=== PATIENT | female | born 1990 | race American Indian/Alaskan Native ===

== ENCOUNTER 2019-01-14 12:05 | Emergency (ER) | payer MEDICAID ==
--- NOTE | 2019-01-14 12:26 | Event Note ---
ED Screening Note Date of service: 01/14/19 Time: 12:26 ED Screening Note: Pt c/o RUQ abdominal pain with h/o gallstones. pain is10/10 and piercing through back. reports vomitting this morning. denies fever or chills. Denies urinary symptoms. Denies vaginal bleeding. ABD: soft, TTP RUQ. No rigidity. NL BS Back: NTTP paraspinal and vertebrae. A: RUQ abdominal pain This initial assessment/diagnostic orders/clinical plan/treatment(s) is/are subject to change based on patients health status, clinical progression and re- assessment by fellow clinical providers in the ED. Further treatment and workup at subsequent clinical providers discretion. Patient/guardian urged not to elope from the ED as their condition may be serious if not clinically assessed and managed. Initial orders include: RUQ abdominal ultrasounf, labs
[2019-01-14 12:29] VITALS: BP 134/69
[2019-01-14 13:16] LABS: Bilirubin,Urine NEG (Negative); Blood,Urine NEG (Negative); Color,Urine Yellow (Yellow); Protein,Urine <15 mg/dL mg/dL (Negative); Urobilinogen,Urine < 2.0 mg/dL (<2.0); WBC,Urine < 1.0 /HPF (0.0-6.0)
--- NOTE | 2019-01-14 13:18 | Ultrasound Report ---
LIMITED RUQ ABDOMINAL ULTRASOUND INDICATION: RUQ pain. H/O gallstones. COMPARISON: No relevant prior imaging study available. FINDINGS: Pancreas: Visualized portions show no significant abnormality. Abdominal Aorta: No significant abnormality. IVC: No significant abnormality. Liver: The liver measures 20 cm in length. No significant abnormality. Normal hepatopedal blood flow in the main portal vein. Gallbladder: Mobile gallstones measuring up to nearly 2 cm in maximal dimension with no gallbladder w all thickening or pericholecystic fluid.. Bile ducts: No significant abnormality. Common bile duct measures 4 mm. Right kidney: No significant abnormality visualized.. Free fluid: None. Additional Findings: None. IMPRESSION: 1. Cholelithiasis with no evidence of cholecystitis. 2. Hepatomegaly. Signer Name: Tai Villarreal MD Signed: 01/14/2019 1:13 PM Workstation Name: [id number]
[2019-01-14 13:42] LABS: Basophils # (Auto) 0.1 K/mm3 (0.0-0.1); Basophils % (Auto) 0.7 % (0.0-1.8); Eosinophils # (Auto) 0.1 K/mm3 (0.0-0.4); Eosinophils % (Auto) 0.5 % (0.0-4.3); Hematocrit 36.2 % (30.3-42.9); Hemoglobin 11.9 gm/dl (10.1-14.3); Lymphocytes % (Auto) 16.1 % (13.4-35.0); Mean Corpuscular HGB Conc 33 % (30-34); Mean Corpuscular Volume 77 fl (79-97); Monocytes # (Auto) 0.7 K/mm3 (0.0-0.8); Monocytes % (Auto) 5.2 % (0.0-7.3); Platelet Count 404 K/mm3 (140-440); Red Blood Count 4.72 M/mm3 (3.65-5.03)
[2019-01-14] MEDS ORDERED: ONDANSETRON 4 MG ODT TAB PO ONE (13:43)
[2019-01-14] MEDS ORDERED: KETOROLAC 30 MG/1 ML INJ IM ONE (13:43)
--- NOTE | 2019-01-14 13:45 | Emergency Department Report ---
ED Abdominal Pain HPI - General Chief Complaint: Abdominal Pain Stated Complaint: V/N/ABD PAIN Time Seen by Provider: 01/14/19 12:25 Source: patient Mode of arrival: Ambulatory Limitations: No Limitations - History of Present Illness Initial Comments: 20-year-old female presents to ED with right upper quadrant abdominal pain, nausea and vomiting since last night. Patient states she had an incidental finding of gallstones when she had her ultrasound when she was with her child. However, she states had the gallstones have never caused any abdominal pain. Patient reports right upper quadrant pain with radiation to the back, with associated nausea and vomiting. She denies any fever or chills. MD Complaint: abdominal pain -: Last night Location: RUQ Radiation: back Migration to: no migration Severity: moderate Quality: cramping Consistency: constant Improves With: nothing Worsens With: nothing Associated Symptoms: nausea, vomiting. denies: diarrhea, fever - Related Data Previous Rx's Medication Instructions Recorded Last Taken Type Dicyclomine [Bentyl] 20 mg PO QID PRN #20 tablet 01/14/19 Unknown Rx Naproxen [Naprosyn] 500 mg PO BID #20 tablet 01/14/19 Unknown Rx Ondansetron [Zofran Odt] 4 mg PO Q8HR PRN #20 tab.rapdis 01/14/19 Unknown Rx traMADoL [Ultram] 50 mg PO Q6HR PRN #7 tablet 01/14/19 Unknown Rx Allergies Allergy/AdvReac Type Severity Reaction Status Date / Time No Known Allergies Allergy Unverified 01/14/19 12:08 ED Review of Systems ROS: Stated complaint: V/N/ABD PAIN Other details as noted in HPI Comment: All other systems reviewed and negative Constitutional: denies: chills, fever Gastrointestinal: abdominal pain, nausea, vomiting ED Past Medical Hx - Past Medical History Previous Medical History?: Yes Hx Psychiatric Treatment: Yes ([employer]) - Surgical History Past Surgical History?: Yes Additional Surgical History: C section - Social History Smoking Status: Never Smoker Substance Use Type: None - Medications Home Medications: Home Medications Medication Instructions Recorded Confirmed Last Taken Type Dicyclomine [Bentyl] 20 mg PO QID PRN #20 tablet 01/14/19 Unknown Rx Naproxen [Naprosyn] 500 mg PO BID #20 tablet 01/14/19 Unknown Rx Ondansetron [Zofran Odt] 4 mg PO Q8HR PRN #20 tab.rapdis 01/14/19 Unknown Rx traMADoL [Ultram] 50 mg PO Q6HR PRN #7 tablet 01/14/19 Unknown Rx ED Physical Exam - General Limitations: No Limitations General appearance: alert, in no apparent distress - Head Head exam: Present: atraumatic, normocephalic - Eye Eye exam: Present: normal appearance, EOMI - ENT ENT exam: Present: mucous membranes moist - Neck Neck exam: Present: normal inspection - Respiratory Respiratory exam: Present: normal lung sounds bilaterally. Absent: respiratory distress - Cardiovascular Cardiovascular Exam: Present: regular rate, normal rhythm - GI/Abdominal GI/Abdominal exam: Present: soft, tenderness (very mild right upper quadrant tenderness). Absent: distended, guarding, rebound - Extremities Exam Extremities exam: Present: normal inspection - Back Exam Back exam: Present: normal inspection. Absent: CVA tenderness (R), CVA tenderness (L) - Neurological Exam Neurological exam: Present: alert, oriented X3 - Psychiatric Psychiatric exam: Present: normal affect, normal mood - Skin Skin exam: Present: warm, dry, intact, normal color ED Course Vital Signs 01/14/19 12:25 Temperature 97.9 F Pulse Rate 67 Respiratory 18 Rate Blood Pressure 134/69 O2 Sat by Pulse 99 Oximetry ED Medical Decision Making - Lab Data Result diagrams: 01/14/19 13:21 01/14/19 13:21 - Radiology Data Radiology results: report reviewed, image reviewed - Medical Decision Making 28-year-old female with right upper quadrant pain, nausea vomiting since last night. Ultrasound shows evidence of cholelithiasis, without cholecystitis. Vitals are normal, patient is afebrile. Labs show mildly elevated white blood cell count of 12.7. LFTs are mildly elevated as well, with normal total bilirubin and normal lipase. Patient advised to follow-up with general surgery for elective cholecystectomy. Patient advised against eating fatty foods. Will discharge at this time. Prescriptions given. Return precautions given. - Differential Diagnosis cholelithiasis, pancreatitis, cholecystitis Critical care attestation.: If time is entered above; I have spent that time in minutes in the direct care of this critically ill patient, excluding procedure time. ED Disposition Clinical Impression: Acute abdominal pain in right upper quadrant, Cholelithiasis Disposition: DC- TO HOME OR SELFCARE Is pt being admited?: No Condition: Stable Instructions: Biliary Colic (ED), Abdominal Pain (ED) Prescriptions: Dicyclomine [Bentyl] 20 mg PO QID PRN #20 tablet PRN Reason: abdominal pain Naproxen [Naprosyn] 500 mg PO BID #20 tablet traMADoL [Ultram] 50 mg PO Q6HR PRN #7 tablet PRN Reason: Pain Ondansetron [Zofran Odt] 4 mg PO Q8HR PRN #20 tab.rapdis PRN Reason: Vomiting Referrals: PRIMARY CAREMD [Primary Care Provider] - 3-5 Days CASSANDRA STEVEN MD [Staff Physician] - 3-5 Days Time of Disposition: 14:20
[2019-01-14 13:59] LABS: Alanine Aminotransferase 69 units/L (7-56); BUN/Creatinine Ratio 15; Blood Urea Nitrogen 9 mg/dL (7-17); Calcium 9.4 mg/dL (8.4-10.2); Hemolysis Index 0
== END 2019-01-14 14:51 | disposition home or self-care (01) ==
LOC: ED 12:05
DX: K80.20 Calculus of gallbladder without cholecystitis without obstruction (principal); F31.9 Bipolar disorder, unspecified
CPT/HCPCS: 36415; 76705; 80053; 81001; 83690; 84703; 85025; 96372; 99284; J1885; Q0162